=== PATIENT | female | born 1960 | race Caucasian/White ===

== ENCOUNTER → 2019-10-22 | Outpatient (CLI) | payer OTHER ==
--- NOTE | 2019-10-22 11:29 | KCIC ---
MR of the right ankle HISTORY: Posterior medial right ankle pain for 3 months. Pain and swelling. Barataria a snap in her ankle 2 weeks ago. Possible injury 3 months ago. TECHNIQUE: Routine planar sequences are obtained through the right ankle. FINDINGS: Peroneal tendons peroneal tendons are intact. Anterior talofibular ligament is mildly thickened and heterogeneous compatible with scarring but no discontinuity. Calcaneofibular ligament and posterior talofibular ligament demonstrate mild scarring but no acute disruption. Tibiofibular syndesmotic ligaments are intact. Posterior tibial tendon is thickened and heterogeneous, with high-grade tearing in the region of the medial malleolus. This likely consists of a complete rupture although motion degradation makes characterization difficult. Mild surrounding fluid. Marrow edema within the posterior medial malleolus is likely reactive. Flexor tendons appear intact, with mild tenosynovial fluid at the intersection. No acute medial ligamentous disruption. Anterior tibial and extensor tendons are intact. Achilles tendon intact. No acute plantar fasciitis. Small spur at the subjacent plantar aponeurosis attachment. Mild DJD is identified. No acute fracture or aggressive bone destruction. Small tibiotalar and subtalar joint effusion. Mild soft tissue edema around the ankle. Tiny subchondral lesion at the medial talar dome, likely a small cyst. IMPRESSION: 1. Posterior tibial tenosynovitis with high-grade tear/rupture. 2. Lateral collateral ligament scarring, without evidence of complete discontinuity or disruption. Electronically signed by: Mandeep Andrade MD (10/22/2019 11:26 AM) [id number]
== END | disposition home or self-care (01) ==
LOC: KCIC MRI 07:55
PROVIDERS: ATTEND Family Medicine
DX: S96.811A Strain of other specified muscles and tendons at ankle and foot level, right foot, initial encounter (principal); M19.071 Primary osteoarthritis, right ankle and foot; M79.89 Other specified soft tissue disorders; X58.XXXA Exposure to other specified factors, initial encounter; Y93.89 Activity, other specified; Y92.89 Other specified places as the place of occurrence of the external cause; Y99.8 Other external cause status
CPT/HCPCS: 73721